=== PATIENT | female | born 1985 | race Caucasian/White ===

== ENCOUNTER 2021-06-30 21:24 | Emergency (ER) | payer OTHER ==
[~2021-06-30] VITALS: Ht 162.6 cm; Wt 95.3 kg
--- NOTE | 2021-06-30 21:30 | NUR ---
Patient to ER bed 5. Side rails up. Report given to LINDA Jarrett.
--- NOTE | 2021-06-30 21:33 | NUR ---
ER at bedside examining patient.
[2021-06-30 21:35] VITALS: BP_SYST 138
--- NOTE | 2021-06-30 21:38 | NUR ---
XR AT BEDSIDE
--- NOTE | 2021-06-30 21:44 | NUR ---
PT ARRIVED TO ER FOR LEFT THUMB PAIN. PT WAS AT A [place] LAST NIGHT AND FELL ON UNEVEN SURFACE AND HURT HER THUMB. 10/10 NOW WHEN NOT MOVING. PT IS ABLE TO MOVE HER THUMB WITH PAIN.
--- NOTE | 2021-06-30 21:55 | NUR ---
LEFT THUMB SPICA PLACED ON PT BY DR CARROLL
[2021-06-30 22:02] VITALS: BP_SYST 138
--- NOTE | 2021-06-30 22:04 | NUR ---
Patient given written and verbal discharge instructions and verbalizes understanding. ER MD discussed with patient the results and treatment provided. Patient in stable condition. ID arm band removed. Patient educated on pain management and to follow up with PMD. Pain Scale 2/10. Opportunity for questions provided and answered. Medication side effect fact sheet provided.
== END 2021-06-30 22:04 | disposition home or self-care (01) ==
LOC: SED 21:24
DX: S63.602A Unspecified sprain of left thumb, initial encounter (principal); Z88.0 Allergy status to penicillin; W18.39XA Other fall on same level, initial encounter; Y93.89 Activity, other specified; Y92.89 Other specified places as the place of occurrence of the external cause; Y99.8 Other external cause status
CPT/HCPCS: 99283

== ENCOUNTER 2024-02-25 19:32 | Emergency (ER) | payer BC, OTHER ==
[~2024-02-25] VITALS: Ht 162.6 cm; Wt 102.1 kg
[2024-02-25 19:35] VITALS: BP_SYST 139; PULSE 110; RESP 20; TEMP 97.1; O2SAT 95
[2024-02-25] MEDS ORDERED: IBUP-1969 PO (20:21)
[2024-02-25 20:25] VITALS: BP_SYST 139; PULSE 110; RESP 20; TEMP 97.1; O2SAT 95
== END 2024-02-25 20:29 | disposition home or self-care (01) ==
LOC: SED 19:32
DX: M25.572 Pain in left ankle and joints of left foot (principal); Z88.0 Allergy status to penicillin
CPT/HCPCS: 99283